=== PATIENT | female | born 1985 | race Caucasian/White ===

== ENCOUNTER 2017-11-27 15:10 | Outpatient (CLI) | payer OTHER ==
[2017-11-27 16:04] LABS: ADD MAN DIFF? NO
[2017-11-27 16:08] LABS: WHITE BLOOD COUNT 9.4 10^3/ul (4.8-10.8)
[2017-11-27 16:08] LABS: BASOPHILS % 0.2 % (0.0-2.0); EOSINOPHILS % 0.4 % (0.0-7.0); HEMATOCRIT 29.2 % (37.0-47.0); HEMOGLOBIN 9.2 g/dl (12.0-16.0); IMMATURE GRANS #M 0.05 10^3/ul; IMMATURE GRANS % (M) 0.5 %; LYMPHOCYTES # 1.7 10^3/ul (0.8-2.9); LYMPHOCYTES % 17.6 % (15.0-51.0); MEAN CORPUSCULAR HEMOGLOBIN 23.4 pg (29.0-33.0); MEAN CORPUSCULAR HGB CONC 31.5 g/dl (32.0-37.0); MEAN CORPUSCULAR VOLUME 74.1 fl (82.0-101.0); MEAN PLATELET VOLUME 12.6 fl (7.4-10.4); MONOCYTE # 0.7 10^3/ul (0.3-0.9); NEUTROPHILS % 74.3 % (39.0-77.0); PLATELET COUNT 236 10^3/UL (140-415); RED BLOOD COUNT 3.94 10^6/ul (4.20-5.40); RED CELL DISTRIBUTION WIDTH 15.6 % (11.5-14.5)
[2017-11-27] MEDS: ACETAMINOPHEN 325 MG TAB PO (16:11)
[2017-11-27 16:24] LABS: ADD UMIC YES; UR ASCORBIC ACID NEGATIVE (NEGATIVE); UR BACTERIA FEW /HPF (NONE SEEN); UR BILIRUBIN (Dip) NEGATIVE (NEGATIVE); UR BLOOD (Dip) NEGATIVE (NEGATIVE); UR CLARITY CLEAR (CLEAR); UR COLOR YELLOW (YELLOW); UR GLUCOSE (Dip) NEGATIVE (NEGATIVE); UR KETONES (Dip) TRACE mg/dL (NEGATIVE); UR LEUKOCYTE ESTERASE (Dip) NEGATIVE Leu/ul (NEGATIVE); UR MUCUS FEW /HPF (NONE SEEN); UR NITRITE (Dip) NEGATIVE (NEGATIVE); UR RBC 1 /HPF (0-5); UR SPECIFIC GRAVITY (Dip) 1.031 (1.003-1.030); UR SQUAMOUS EPITHELIAL CELL FEW /HPF (FEW); UR TOTAL PROTEIN (Dip) 1+ mg/dl (NEGATIVE); UR UROBILINOGEN (Dip) 1+ mg/dL (NEGATIVE); UR WBC 2 /HPF (0-5)
[2017-11-27 16:28] LABS: ALANINE AMINOTRANSFERASE 9 IU/L (13-69); ALBUMIN 2.9 g/dl (3.3-4.9); ALBUMIN/GLOBULIN RATIO 0.85; ALKALINE PHOSPHATASE 84 IU/L (42-121); ANION GAP 10 (8-16); ASPARTATE AMINO TRANSFERASE 16 IU/L (15-46); BILIRUBIN,INDIRECT 0.1 mg/dl (0-1.1); BILIRUBIN,TOTAL 0.1 mg/dl (0.2-1.3); BLOOD UREA NITROGEN 10 mg/dl (7-20); CARBON DIOXIDE 22 mmol/L (21-31); CHLORIDE 110 mmol/L (97-110); CREATININE 0.59 mg/dl (0.44-1.00); GLUCOSE 86 mg/dl (70-220); INR 0.92; POTASSIUM 3.9 mmol/L (3.5-5.1); PROTIME 12.4 Sec (11.9-14.9); SODIUM 138 mmol/L (135-144); TOTAL PROTEIN 6.3 g/dl (6.1-8.1)
[2017-11-27 16:29] LABS: PARTIAL THROMBOPLASTIN TIME 24.7 Sec (25.0-35.0)
== END 2017-11-27 16:50 | disposition home or self-care (01) ==
LOC: OBT 15:10 → L-D 15:11 → OBT 16:50
DX: O26.893 Other specified pregnancy related conditions, third trimester (principal); Z3A.34 34 weeks gestation of pregnancy; R51 Headache; R04.0 Epistaxis
CPT/HCPCS: 76818; 80053; 81001; 84560; 85025; 85384; 85610; 85730

== ENCOUNTER 2017-11-27 16:57 | Emergency (ER) | payer SELFPAY, OTHER | END 2017-11-27 21:18 | disposition left against medical advice (07) | LOC: FTE 16:57 | DX: Z53.21 Procedure and treatment not carried out due to patient leaving prior to being seen by health care provider (principal) ==

== ENCOUNTER 2017-11-28 19:41 | Outpatient (CLI) | payer OTHER ==
[2017-11-28] MEDS ORDERED: TERBUTALINE 1 MG/ML INJ SC (20:30)
[2017-11-28 20:51] LABS: COLLECTION PERIOD 24 hrs
[2017-11-28] MEDS: TERBUTALINE 1 MG/ML INJ SC (20:52)
[2017-11-28 21:44] LABS: CREATININE 0.61 mg/dl (0.44-1.00)
[2017-11-28 22:09] LABS: COLLECTION PERIOD 24 hrs; SCRET 0.61 mg/dl (0.44-1.00); VOLUME 1650 ml/24hrs
[2017-11-28 22:10] LABS: CREATININE,URINE RANDOM 112.87 mg/dl (20-320); VOLUME 1650 mls
== END 2017-11-28 23:50 | disposition home or self-care (01) ==
LOC: OBT 19:41 → L-D 19:42 → OBT 23:50
DX: O26.893 Other specified pregnancy related conditions, third trimester (principal); Z3A.34 34 weeks gestation of pregnancy; R42 Dizziness and giddiness; H53.8 Other visual disturbances
CPT/HCPCS: 82565; 82575; 84156

== ENCOUNTER 2018-01-07 08:34 | Inpatient (IN) | payer OTHER ==
[2018-01-07] MEDS ORDERED: LIDOCAINE 1% (MPF) 30 ML INJ INJ (10:00)
[2018-01-07] MEDS ORDERED: CARBOPROST 250 MCG INJ IM (10:00)
[2018-01-07] MEDS ORDERED: OXYCODONE/ASPIRIN (4.88/325) TAB PO ×3 (10:00→17:30)
[2018-01-07] MEDS ORDERED: METHYLERGONOVINE 0.2 MG INJ IM (10:00)
[2018-01-07] MEDS ORDERED: MISOPROSTOL 200 MCG TAB PR (10:00)
[2018-01-07] MEDS ORDERED: BUTORPHANOL 2 MG INJ IV (10:00)
[2018-01-07] MEDS ORDERED: OXYTOCIN 30 UNITS/LR 500 ML IV (10:00)
[2018-01-07 10:15] LABS: ADD MAN DIFF? NO
[2018-01-07 10:17] LABS: WHITE BLOOD COUNT 11.5 10^3/ul (4.8-10.8)
[2018-01-07 10:17] LABS: ABNORMAL IP MESSAGE 1; BASOPHILS % 0.3 % (0.0-2.0); EOSINOPHILS % 0.3 % (0.0-7.0); HEMATOCRIT 31.8 % (37.0-47.0); HEMOGLOBIN 9.7 g/dl (12.0-16.0); LYMPHOCYTES # 2.3 10^3/ul (0.8-2.9); LYMPHOCYTES % 19.7 % (15.0-51.0); MEAN CORPUSCULAR HEMOGLOBIN 22.2 pg (29.0-33.0); MEAN CORPUSCULAR HGB CONC 30.5 g/dl (32.0-37.0); MEAN CORPUSCULAR VOLUME 72.8 fl (82.0-101.0); MONOCYTE # 0.7 10^3/ul (0.3-0.9); MONOCYTES % 5.8 % (0.0-11.0); NEUTROPHIL # 8.4 10^3/ul (1.6-7.5); NEUTROPHILS % 73.3 % (39.0-77.0); PLATELET COUNT 270 10^3/UL (140-415); RED BLOOD COUNT 4.37 10^6/ul (4.20-5.40); RED CELL DISTRIBUTION WIDTH 16.1 % (11.5-14.5)
[2018-01-07] MEDS: LACTATED RINGER'S 1,000 ML IV* ×2 (10:23→11:14)
[2018-01-07 10:26] LABS: POSITIVE DIFF @See below
[2018-01-07 10:41] LABS: PT RATIO 0.9
[2018-01-07 10:43] LABS: INR 0.87; PARTIAL THROMBOPLASTIN TIME 26.1 Sec (25.0-35.0); PROTIME 11.9 Sec (11.9-14.9)
[2018-01-07] MEDS: OXYTOCIN 30 UNITS/LR 500 ML IV ×3 (10:58→17:14)
[2018-01-07] MEDS ORDERED: FENTAnyl 2MCG/ML-ROPIV 0.2% 100 ML (11:22)
[2018-01-07] MEDS ORDERED: DIPHENHYDRAMINE 50 MG INJ IV (11:30)
[2018-01-07] MEDS ORDERED: NALOXONE (0.4 MG/ML) INJ IV (11:30)
[2018-01-07] MEDS ORDERED: ONDANSETRON 4 MG INJ IV ×2 (11:30→17:30)
[2018-01-07] MEDS ORDERED: FENTAnyl 2MCG/ML-ROPIV 0.2% 100 ML BAG EPI (11:30)
[2018-01-07 12:07] LABS: HEPATITIS B SURFACE ANTIGEN NEGATIVE (NEGATIVE)
[2018-01-07] MEDS: IBUPROFEN 600 MG TAB PO ×3 (15:54→23:43)
[2018-01-07] MEDS ORDERED: DIBUCAINE 1% 30 GM OINT PR (17:30)
[2018-01-07] MEDS ORDERED: LANOLIN 7 GM TUBE TOP (17:30)
[2018-01-07] MEDS ORDERED: BENZOCAINE 20% 56 ML SPRAY TOP (17:30)
[2018-01-07] MEDS ORDERED: WITCH HAZEL/GLYCERIN PAD PR (17:30)
[2018-01-07] MEDS ORDERED: ACETAMINOPHEN 325 MG TAB PO (17:30)
[2018-01-07 19:40] LABS: RAPID PLASMA REAGIN NONREACTIVE (NR)
[2018-01-07] MEDS: SENNA/DOCUSATE NA (8.6MG/50MG) TAB PO (21:02)
[2018-01-08] MEDS: HYDROCODONE/APAP (5/325) TAB PO (03:06)
[2018-01-08] MEDS: IBUPROFEN 600 MG TAB PO ×3 (05:35→18:03)
[2018-01-08] MEDS: SENNA/DOCUSATE NA (8.6MG/50MG) TAB PO ×2 (09:24→20:40)
[2018-01-08 10:55] LABS: ADD MAN DIFF? NO
[2018-01-08 10:58] LABS: WHITE BLOOD COUNT 10.2 10^3/ul (4.8-10.8)
[2018-01-08 10:58] LABS: ABNORMAL IP MESSAGE 1; BASOPHILS % 0.2 % (0.0-2.0); EOSINOPHILS # 0.1 10^3/ul (0.0-0.5); EOSINOPHILS % 1.1 % (0.0-7.0); HEMATOCRIT 28.8 % (37.0-47.0); HEMOGLOBIN 8.7 g/dl (12.0-16.0); LYMPHOCYTES # 2.1 10^3/ul (0.8-2.9); LYMPHOCYTES % 20.7 % (15.0-51.0); MEAN CORPUSCULAR HGB CONC 30.2 g/dl (32.0-37.0); MEAN CORPUSCULAR VOLUME 72.7 fl (82.0-101.0); MONOCYTE # 0.6 10^3/ul (0.3-0.9); MONOCYTES % 5.6 % (0.0-11.0); NEUTROPHIL # 7.4 10^3/ul (1.6-7.5); PLATELET COUNT 234 10^3/UL (140-415); RED BLOOD COUNT 3.96 10^6/ul (4.20-5.40); RED CELL DISTRIBUTION WIDTH 15.9 % (11.5-14.5)
[2018-01-08 11:00] LABS: POSITIVE DIFF @See below
[2018-01-09] MEDS: HYDROCODONE/APAP (5/325) TAB PO (00:35)
[2018-01-09] MEDS: IBUPROFEN 600 MG TAB PO ×2 (00:35→05:56)
[2018-01-09] MEDS: SENNA/DOCUSATE NA (8.6MG/50MG) TAB PO (08:50)
[2018-01-09] MEDS: MEASLES,MUMPS,RUBELLA VACCINE INJ SC* (09:00)
== END 2018-01-09 12:07 | disposition home or self-care (01) | DRG 775 ==
LOC: OBT 08:34 → L-D 08:34 → OBT 09:34 → L-D 09:34 → PP1 16:13
PROVIDERS: Obstetrics & Gynecology
PROC: 10E0XZZ Delivery of Products of Conception, External Approach (ICD-10-PCS; principal; 2018-01-07)
PROC: 0HQ9XZZ Repair Perineum Skin, External Approach (ICD-10-PCS; 2018-01-07)
PROC: 4A1HXCZ Monitoring of Products of Conception, Cardiac Rate, External Approach (ICD-10-PCS; 2018-01-07)
DX: O48.0 Post-term pregnancy (principal); O70.0 First degree perineal laceration during delivery; Z37.0 Single live birth; Z3A.40 40 weeks gestation of pregnancy
CPT/HCPCS: 62319; 85025; 85610; 85730; 86592; 86850; 86900; 86901; 87340